=== PATIENT | female | born 1955 | race Caucasian/White ===

== ENCOUNTER 2020-05-16 12:06 | Day surgery (SDC) | payer OTHER ==
[~2020-05-16] VITALS: Ht 172.7 cm; Wt 93.9 kg
--- NOTE | 2020-05-16 13:53 | NUR ---
05/16/20 1353 Aisha Garnica PT. WISHES NO SEDATION, DR. FRAZIER AWARE.
== END 2020-05-16 14:50 | disposition home or self-care (01) ==
LOC: ORSCSDS 12:06
DX: Z12.11 Encounter for screening for malignant neoplasm of colon (principal); Z85.038 Personal history of other malignant neoplasm of large intestine; Z86.010 Personal history of colon polyps; D12.4 Benign neoplasm of descending colon; D12.2 Benign neoplasm of ascending colon; K57.30 Diverticulosis of large intestine without perforation or abscess without bleeding; K64.8 Other hemorrhoids; R56.9 Unspecified convulsions; K21.9 Gastro-esophageal reflux disease without esophagitis; E78.5 Hyperlipidemia, unspecified; I10 Essential (primary) hypertension
CPT/HCPCS: 88305; J2704; J7120

== ENCOUNTER 2023-05-10 06:26 | Observation (INO) | payer MEDICARE ==
[~2023-05-10] VITALS: Ht 172.7 cm; Wt 91.8 kg
[2023-05-10] MEDS ORDERED: CENTRUM SILVER1 EAC2 PO (07:30)
[2023-05-10] MEDS ORDERED: MAGNESIUM COMP300 MG PO (07:30)
[2023-05-10] MEDS ORDERED: B-COMPLEX WITH1 EACH PO (07:31)
[2023-05-10] MEDS ORDERED: VITAMIN D350 MC3 PO (07:31)
[2023-05-10] MEDS ORDERED: COQ-10100 MG PO (07:31)
[2023-05-10] MEDS ORDERED: VITAMIN E180 MG PO (07:32)
[2023-05-10] MEDS ORDERED: FISH OIL 1,0001 EA10 PO (07:32)
[2023-05-10] MEDS ORDERED: ASPI325 PO (07:32)
[2023-05-10] MEDS ORDERED: GUAI600T33 PO (07:33)
[2023-05-10] MEDS ORDERED: DEXT30SU PO (07:33)
[2023-05-10 07:40] LABS: BASOPHILS ABSOLUTE AUTO 0.03 K/mm3 (0.00-0.23); BASOPHILS PERCENT AUTO 1 % (0-2); EOSINOPHILS ABSOLUTE AUTO 0.03 K/mm3 (0.00-0.68); EOSINOPHILS PERCENT AUTO 1 % (0-6); Hematocrit 44.6 % (33.0-51.0); Hemoglobin 14.9 g/dL (11.5-16.0); IMMATURE GRAN ABSOLUTE AUTO 0.01 K/mm3 (0.00-0.10); IMMATURE GRAN PERCENT AUTO 0 % (0-1); LYMPHOCYTES ABSOLUTE AUTO 2.07 K/mm3 (0.84-5.20); LYMPHOCYTES PERCENT AUTO 38 % (21-46); MONOCYTES ABSOLUTE AUTO 0.54 K/mm3 (0.16-1.47); MONOCYTES PERCENT AUTO 10 % (4-13); Mean Corpuscular HGB 29.6 pg (26.0-34.0); Mean Corpuscular HGB Conc 33.4 g/dL (31.5-36.5); Mean Corpuscular Volume 89 fL (80-100); Mean Platelet Volume 9.6 fL (9.1-12.4); NEUTROPHILS ABSOLUTE AUTO 2.74 K/mm3 (1.96-9.15); NEUTROPHILS PERCENT AUTO 50 % (41-73); Platelet Count 195 K/mm3 (150-400); RDW Coefficient Variation 13.3 % (11.7-14.2); RDW Standard Deviation 43.5 fL (35.1-46.3); Red Blood Cell Count 5.03 M/mm3 (3.80-5.20); White Blood Cell Count 5.42 K/mm3 (4.00-11.30)
[2023-05-10 07:54] LABS: Albumin, Blood 3.8 g/dL (3.4-5.0); Albumin/Globulin Ratio 0.9 (0.8-1.8); Bilirubin, Total 0.3 mg/dL (0.1-1.0); Bun/Creatinine Ratio 16.2 (12.0-20.0); Calcium, Blood 8.6 mg/dL (8.5-10.1); Creatinine, Blood 0.8 mg/dL (0.40-1.00); Globulin, Blood 4.4 g/dL (2.2-4.0); Magnesium, Blood 2.2 mg/dL (1.6-2.4); Potassium, Blood 3.6 mmol/L (3.5-5.5); Total Protein, Blood 8.2 g/dL (6.4-8.2)
[2023-05-10 14:59] VITALS: BP 153/85
[2023-05-10 16:29] VITALS: BP 133/79
[2023-05-10 17:33] VITALS: BP 128/80
--- NOTE | 2023-05-10 18:14 | NUR ---
PT ADMITTED FROM ED. ALERT ORIENTED X4. DENIES CHEST PAIN AND PRESSURE, SOB, DIZZINESS. INDEPENDENT IN THE ROOM. ABLE TO MAKE NEEDS KNOW. ORDERED TELE AND RESPIRATORY PANEL. PT REPORTS 3 COLD SYMPTOMS FOR 3 WEEKS. NO PREVIOUS CARDIAC HX. BED IN THE LOWEST POSITION WITH CALL LIGHT IN REACH. EMPHASIZED IMPORTANCE OF USING CALL LIGHT IF SYMPTOMS RETURN.
[2023-05-10 19:36] VITALS: BP 134/86
--- NOTE | 2023-05-11 03:31 | NUR ---
SHIFT SUMMARY PT A&O X4, CALM AND COOPERATIVE WITH CARE. TELEMETRY: SR @ 69. NO ACUTE EVENTS OVERNIGHT. PT DENIES ANY CP, PRESSURE, DIZZINESS, OR RAPID HR. PT IS CONTINENT AND AMBULATES TO RESTROOM IND. PT CALLS APPROPRIATELY FOR NEEDS. BED KEPT IN LOWEST POSITION WITH CALL LIGHT WITHIN REACH. WILL CONTINUE TO MONITOR.
[2023-05-11 04:17] VITALS: BP 143/85
[2023-05-11 05:52] LABS: BASOPHILS ABSOLUTE AUTO 0.04 K/mm3 (0.00-0.23); BASOPHILS PERCENT AUTO 1 % (0-2); EOSINOPHILS ABSOLUTE AUTO 0.05 K/mm3 (0.00-0.68); EOSINOPHILS PERCENT AUTO 1 % (0-6); Hematocrit 40.9 % (33.0-51.0); Hemoglobin 13.5 g/dL (11.5-16.0); IMMATURE GRAN PERCENT AUTO 0 % (0-1); LYMPHOCYTES ABSOLUTE AUTO 2.74 K/mm3 (0.84-5.20); LYMPHOCYTES PERCENT AUTO 63 % (21-46); MONOCYTES ABSOLUTE AUTO 0.37 K/mm3 (0.16-1.47); MONOCYTES PERCENT AUTO 9 % (4-13); Mean Corpuscular HGB 29.5 pg (26.0-34.0); Mean Corpuscular Volume 90 fL (80-100); Mean Platelet Volume 9.5 fL (9.1-12.4); NEUTROPHILS ABSOLUTE AUTO 1.16 K/mm3 (1.96-9.15); NEUTROPHILS PERCENT AUTO 27 % (41-73); Platelet Count 192 K/mm3 (150-400); RDW Coefficient Variation 13.4 % (11.7-14.2); Red Blood Cell Count 4.57 M/mm3 (3.80-5.20); White Blood Cell Count 4.36 K/mm3 (4.00-11.30)
[2023-05-11 06:21] LABS: Alanine Aminotransfer (ALT/SGP 21 U/L (12-78); Albumin, Blood 3.4 g/dL (3.4-5.0); Alk Phos 58 U/L (50-136); Anion Gap 5 mmol/L (6-16); Aspartate Aminotrans (AST/SGOT 20 U/L (12-37); Bilirubin, Total 0.4 mg/dL (0.1-1.0); Blood Urea Nitrogen 12 mg/dL (8-24); Bun/Creatinine Ratio 16.7 (12.0-20.0); CHOL/HDL RATIO 3.9; CO2, Blood 26 mmol/L (21-32); Calcium, Blood 8.7 mg/dL (8.5-10.1); Chloride, Blood 108 mmol/L (98-108); Cholesterol 172 mg/dL (50-200); Creatinine, Blood 0.72 mg/dL (0.40-1.00); Globulin, Blood 3.5 g/dL (2.2-4.0); Glomerular Filtration Rate 92 (60-); Glucose, Blood 94 mg/dL (70-99); HDL Cholesterol 44 mg/dL (>39); LDL/HDL RATIO 2.3; Low Density Lipoprotein Chol 102 mg/dL (0-110); Magnesium, Blood 2.3 mg/dL (1.6-2.4); Potassium, Blood 3.8 mmol/L (3.5-5.5); Sodium, Blood 139 mmol/L (136-145); Total Protein, Blood 6.9 g/dL (6.4-8.2); Triglycerides 132 mg/dL (30-160); Very Low Density Lipoprot Chol 26 mg/dL (6-32)
[2023-05-11 07:30] VITALS: BP 156/90
[2023-05-11 15:11] VITALS: BP 139/75
[2023-05-11] MEDS ORDERED: Vitamin D1000 UNI1 PO (18:04)
[2023-05-11] MEDS ORDERED: ELIQUIS5 M2 PO (18:06)
[2023-05-11] MEDS ORDERED: ATOR20 PO (18:06)
[2023-05-11] MEDS ORDERED: METO50ER PO (18:07)
--- NOTE | 2023-05-11 18:47 | NUR ---
DISCHARGE INSTRUCTIONS COMPLETED AND DISCUSSED WITH PT EXPRESSING UNDERSTANDING. ELIQUIS GIVEN PRIOR TO LEAVING DUE TO INbILITY TO OBTAIN IT FROM [facility]. INSISTED ON WALKING OUT. SHE REPORTS DOWNSTAIRS TO PICK HER UP.
[2023-05-11 19:06] LABS: SARS-Cov-2 (COVID-19), BioFire Detected (NOT DETECT)
[2023-05-11 19:07] LABS: Adenovirus Not Detected (NOT DETECT); Bordetella pertussis Not Detected (NOT DETECT); Chlamydophila pneumoniae Not Detected (NOT DETECT); Coronavirus 229E Not Detected (NOT DETECT); Coronavirus HKU1 Not Detected (NOT DETECT); Coronavirus NL63 Not Detected (NOT DETECT); Coronavirus OC43 Not Detected (NOT DETECT); Human Metapneumovirus Not Detected (NOT DETECT); Human Rhinovirus/Enterovirus Not Detected (NOT DETECT); Influenza A/2009-H1 Not Detected (NOT DETECT); Influenza A/H1 Not Detected (NOT DETECT); Influenza A/H3 Not Detected (NOT DETECT); Influenza B Not Detected (NOT DETECT); Mycoplasma pneumoniae Not Detected (NOT DETECT); Parainfluenza Virus 1 Not Detected (NOT DETECT); Parainfluenza Virus 2 Not Detected (NOT DETECT); Parainfluenza Virus 3 Not Detected (NOT DETECT); Parainfluenza Virus 4 Not Detected (NOT DETECT); Respiratory Syncytial Virus Not Detected (NOT DETECT)
== END 2023-05-11 18:45 | disposition home or self-care (01) ==
LOC: ER 06:26 → MEDS 06:27
PROVIDERS: Emergency Medicine; ADMIT Internal Medicine
DX: I48.91 Unspecified atrial fibrillation (principal); E78.5 Hyperlipidemia, unspecified; Z91.041 Radiographic dye allergy status; R73.03 Prediabetes; M85.80 Other specified disorders of bone density and structure, unspecified site
CPT/HCPCS: 0202U; 36415; 80053; 80061; 83036; 83735; 84100; 85025; 93005; 93010; 96365; 96366; 96375; 96376; 99285-25; A9270; G0378; J7030

== ENCOUNTER → 2025-01-17 | Outpatient (CLI) | payer MEDICARE ==
[~2025-01-17] MED LIST: ASPI325 PO; ATOR20 PO; B-COMPLEX WITH1 EACH PO; CENTRUM SILVER1 EAC2 PO; COQ-10100 MG PO; DEXT30SU PO; ELIQUIS5 M2 PO; FISH OIL 1,0001 EA10 PO; GUAI600T33 PO; MAGNESIUM COMP300 MG PO; METO50ER PO; VITAMIN D350 MC3 PO; VITAMIN E180 MG PO; Vitamin D1000 UNI1 PO
== END ==
LOC: LAB 15:04 → LAB SHORT 15:04
DX: L82.1 Other seborrheic keratosis (principal); D22.5 Melanocytic nevi of trunk
CPT/HCPCS: 88305

== ENCOUNTER 2025-02-08 07:40 | Day surgery (SDC) | payer MEDICARE ==
[~2025-02-08] VITALS: Ht 172.7 cm; Wt 90.1 kg
[2025-02-08] MEDS ORDERED: Prinivil10 MG (08:13)
[2025-02-08] MEDS ORDERED: XARELTO20 MG (08:14)
--- NOTE | 2025-02-08 10:08 | NUR ---
02/08/25 Kacey8 ERICA CHANEY PT REQUESTS NO SEDATION. PROCEDURE COMPLETED WITHOUT SEDATION, NO COMPLICATIONS. PT CALM THROUGHOUT PROCEDURE.
[2025-02-08 10:39] VITALS: BP 164/85
== END 2025-02-08 10:30 | disposition home or self-care (01) ==
LOC: ORSCSDS 07:40
PROVIDERS: Internal Medicine Gastroenterology
PROC: 0DJD8ZZ Inspection of Lower Intestinal Tract, Via Natural or Artificial Opening Endoscopic (ICD-10-PCS; principal; 2025-02-08 09:30)
DX: Z12.11 Encounter for screening for malignant neoplasm of colon (principal); Z85.038 Personal history of other malignant neoplasm of large intestine; I48.91 Unspecified atrial fibrillation; Z86.0101 Personal history of adenomatous and serrated colon polyps; I10 Essential (primary) hypertension; E78.5 Hyperlipidemia, unspecified; F41.9 Anxiety disorder, unspecified; E03.9 Hypothyroidism, unspecified; Z79.01 Long term (current) use of anticoagulants; Z79.899 Other long term (current) drug therapy